=== PATIENT | male | born 1965 | race African-American/Black ===

== ENCOUNTER 2021-02-17 10:28 | Outpatient (CLI) | payer MEDICARE, MEDICAID, OTHER | END 2021-02-17 10:29 | disposition home or self-care (01) | LOC: BICULT 10:28 | PROVIDERS: ATTEND Internal Medicine | DX: R16.0 Hepatomegaly, not elsewhere classified (principal); R93.2 Abnormal findings on diagnostic imaging of liver and biliary tract | CPT/HCPCS: 76705 ==

== ENCOUNTER 2022-04-02 06:47 | Outpatient (CLI) | payer MEDICARE, OTHER | END 2022-04-02 06:48 | disposition home or self-care (01) | LOC: BICULT 06:47 | PROVIDERS: ATTEND Internal Medicine | DX: K76.0 Fatty (change of) liver, not elsewhere classified (principal); R16.0 Hepatomegaly, not elsewhere classified | CPT/HCPCS: 76700 ==

== ENCOUNTER 2023-01-20 08:07 | Outpatient (CLI) | payer MEDICARE, MEDICAID ==
[2023-01-20] MEDS ORDERED: Iopamidol-370 76% 500 ML 1 ML ONE (17:46)
== END 2023-01-20 08:08 | disposition home or self-care (01) ==
LOC: BICCT 08:07
PROVIDERS: ATTEND Urology
DX: R31.29 Other microscopic hematuria (principal)
CPT/HCPCS: 74178; Q9967